=== PATIENT | female | born 1965 | race Hispanic/Latino ===

== ENCOUNTER 2021-03-11 18:50 | Emergency (ER) | payer SELFPAY ==
[~2021-03-11] VITALS: Ht 152.4 cm; Wt 102.5 kg
[2021-03-11] MEDS ORDERED: KETOROLAC TROMETHAMINE 60 MG/2 ML VIAL IM ONE (19:15)
[2021-03-11] MEDS ORDERED: ULTRAM 50MG50 MG PO (20:23)
[2021-03-11 20:32] VITALS: BP 135/78
== END 2021-03-11 20:31 | disposition home or self-care (01) ==
LOC: ER 18:59
DX: M25.561 Pain in right knee (principal); R60.9 Edema, unspecified; I10 Essential (primary) hypertension; E11.9 Type 2 diabetes mellitus without complications; E03.9 Hypothyroidism, unspecified; E66.01 Morbid (severe) obesity due to excess calories
CPT/HCPCS: 71046; 93971; 99283; J1885

== ENCOUNTER → 2024-09-29 | Day surgery (SDC) | payer OTHER ==
[2024-09-21 12:35] LABS: BASOPHILS % 0.6 % (0.0-1.0); EOSINOPHILS % 3.0 % (0.0-6.0); LYMPHOCYTES % 28.2 % (18.0-39.1); MONOCYTES % 5.6 % (4.4-11.3); NEUTROPHILS % 62.2 % (38.7-80.0); RED CELL DISTRIBUTION WIDTH 16.5 % (11.7-14.4)
[~2024-09-29] MED LIST: ACTOS15 MG PO; FENTANYL CITRATE/PF 100MCG/2 ML INJ ONE; FOLIC ACID0.4 MG PO; HYDROCHLOROTHIA25 MG PO; HYOSCYAMINE SULFATE 0.5 MG/ML INJ ONE; KETAMINE HCL INJ 50 MG/ML 10 ML VIAL ONE; LEVOTHYROXINE88 MCG PO; LIDOCAINE HCL 2% LOCAL INJ 5 ML SDV VIAL INJ ONE; LIPITOR10 MG PO; LOW DOSE ASPIRI81 MG; METFORMIN HCL850 MG PO; METOPROLOL SUCC25 MG PO; MIDAZOLAM HCL 2 MG/2 ML VIAL ONE; ONDANSETRON HCL INJ 2MG/ML 2ML 2 MG/ML VIAL ONE; PROPOFOL IV EMULSION 10 MG/ML 20 ML VIAL ONE; PROPOFOL IV EMULSION 50 ML IV ONE; ULTRAM 50MG50 MG PO; [UNRECOGNIZED DRUG - REMARK] PO
[2024-09-29] MEDS: LACTATED RINGER'S 1,000 ML ONE (08:58)
[2024-09-29 10:49] VITALS: TEMP 97.8
[2024-09-29 11:20] VITALS: BP 156/84; PULSE 80; RESP 18; O2SAT 99
[2024-09-29 11:57] LABS: % IRON SATURATION 5 % (15-50)
[2024-09-30 13:17] LABS: FOLATE (REF LAB) >20.0 ng/mL (>3.0)
[2024-10-03 05:13] LABS: ENDOMYSIAL ANTIBODIES, IGA Negative (Negative)
[2024-10-03 05:32] LABS: TISSUE TRANSGLUTAMINASE IGA AB <2 U/mL (0-3)
== END | disposition home or self-care (01) ==
LOC: OR 07:45
PROVIDERS: ATTEND Internal Medicine Gastroenterology
DX: K22.89 Other specified disease of esophagus (principal); K29.50 Unspecified chronic gastritis without bleeding; B96.81 Helicobacter pylori [H. pylori] as the cause of diseases classified elsewhere; D12.2 Benign neoplasm of ascending colon; K57.30 Diverticulosis of large intestine without perforation or abscess without bleeding; K64.8 Other hemorrhoids; I10 Essential (primary) hypertension; E03.9 Hypothyroidism, unspecified; D64.9 Anemia, unspecified; Z79.84 Long term (current) use of oral hypoglycemic drugs; Z01.810 Encounter for preprocedural cardiovascular examination; Z01.812 Encounter for preprocedural laboratory examination
CPT/HCPCS: 36415 ×2; 43239; 45385; 82607; 82746; 82784; 82948; 83516; 83540; 84466; 85014; 85018; 85025; 85045; 86256; 93005; J1980; J2003; J2405; J2470; J2704 ×2; J3010; J7121; 45378; J2250